=== PATIENT | female | born 2000 | race Two or more races ===

== ENCOUNTER 2022-02-10 10:13 | Emergency (ER) | payer SELFPAY ==
[~2022-02-10] VITALS: Ht 149.9 cm; Wt 54.0 kg
[2022-02-10 11:01] LABS: Urine Bacteria FEW /hpf (None Seen); Urine Blood Negative /uL (Negative); Urine Mucus FEW (None Seen); Urine Specific Gravity 1.029 (1.001-1.035); Urine WBC 11 /hpf (0 - 5)
[2022-02-10 11:09] LABS: Basophils # (auto) 0 10 ^3/uL (0-0.2); Basophils % (auto) 0.2 % (0.0-2.0); Eosinophils # (auto) 0 10 ^3/uL (0-0.8); Eosinophils % (auto) 0.1 % (0.0-7.0); Hematocrit 41.7 % (36.0-46.0); Hemoglobin 14.2 g/dL (12.2-16.2); Lymphocytes # (auto) 0.9 10 ^3/uL (0.4-5.4); Lymphocytes % (auto) 10.4 % (10.0-50.0); Mean Corpuscular Hemoglobin 30.6 pg (28.0-32.0); Mean Corpuscular Volume 90.2 fL (80.0-100.0); Monocytes # (auto) 0.5 10 ^3/uL (0-1.3); Monocytes % (auto) 5.7 % (0.0-12.0); Neutrophils # (auto) 7.6 10 ^3/uL (1.6-8.6); Neutrophils % (auto) 83.6 % (37.0-80.0); Red Blood Cells 4.63 10^6/uL (4.0-5.20); Red Cell Distribution Width 13.4 % (11.8-14.3)
[2022-02-10 11:14] LABS: Albumin 4.7 g/dL (3.4-5.0); Calcium 9.9 mg/dL (8.5-10.1); Potassium 3.5 mmol/L (3.5-5.1)
[2022-02-10] MEDS ORDERED: LORazepam 0.5 MG TAB PO ONE (11:15)
[2022-02-10 11:17] LABS: BUN/Creatinine Ratio 16.4; Bilirubin, Total 0.8 mg/dL (0.2-1.0); Total Protein 8.8 g/dL (6.4-8.2)
[2022-02-10] MEDS ORDERED: ALPR0.25 PO (11:42)
[2022-02-10] MEDS ORDERED: NITR-87 PO (11:42)
[2022-02-10 12:40] VITALS: BP 108/85
== END 2022-02-10 13:55 | disposition home or self-care (01) ==
LOC: ER 10:13
DX: N39.0 Urinary tract infection, site not specified (principal); F41.9 Anxiety disorder, unspecified
CPT/HCPCS: 36415; 80053; 81001; 81025; 85025